=== PATIENT | male | born 1975 | race African-American/Black ===

== ENCOUNTER 2017-10-12 19:56 | Emergency (ER) | payer SELFPAY ==
--- NOTE | 2017-10-12 19:59 | PDOC ---
Rapid Medical Evaluation Time Seen by Provider: 10/12/17 19:57 Medical Evaluation: 10/12/17 19:57 I have performed a brief in-person evaluation of this patient. The patient presents with a chief complaint of: fell down stairs yesterday "think i tore something in my leg" , pain with weight bearing Pertinent physical exam findings: full ROM to L knee, ambulatory I have ordered the following: x-ray The patient will proceed to the ED for further evaluation. Discharge Disposition - Diagnosis Leg pain - Referrals - Patient Instructions - Post Discharge Activity
[2017-10-12 20:01] VITALS: BP 132/75; PULSE 112; TEMP 98.3; BMI 28.5
--- NOTE | 2017-10-12 20:59 | PDOC ---
History of Present Illness - General Chief Complaint: Injury Stated Complaint: FALL LEFT LEG PAIN Time Seen by Provider: 10/12/17 19:57 Past History - Past Medical History Allergies/Adverse Reactions: Allergies Allergy/AdvReac Type Severity Reaction Status Date / Time No Known Allergies Allergy Verified 10/12/17 19:57 Home Medications: Ambulatory Orders NK [No Known Home Medication] 10/12/17 COPD: No - Suicide/Smoking/Psychosocial Hx Smoking History: Current every day smoker Have you smoked in the past 12 months: Yes Number of Cigarettes Smoked Daily: 20 Information on smoking cessation initiated: Yes 'Breaking Loose' booklet given: 10/12/17 Hx Alcohol Use: No Drug/Substance Use Hx: No Substance Use Type: None *Physical Exam - Vital Signs Last Vital Signs Temp Pulse Resp BP Pulse Ox 98.3 F 112 H 18 132/75 100 10/12/17 19:58 10/12/17 19:58 10/12/17 19:58 10/12/17 19:58 10/12/17 19:58 *DC/Admit/Observation/Transfer Diagnosis at time of Disposition: Left knee sprain Qualifiers: Encounter type: initial encounter Involved ligament of knee: unspecified ligament Qualified Code(s): S83.92XA - Sprain of unspecified site of left knee, initial encounter - Discharge Dispostion Disposition: HOME Condition at time of disposition: Stable Admit: No - Referrals Referrals: Tank Lyon MD [Staff Physician] - - Patient Instructions Printed Discharge Instructions: DI for Knee Sprain Additional Instructions: You sprained your knee. Your x-ray was negative for broken bones. Please keep your knee elevated while at rest above the level of your heart to reduce swelling. You may take Motrin 800 mg every 8 hours to help reduce pain and swelling. Please ice the area for 20 minute intervals at least 5 times a day to help reduce swelling. Please wear the Atul wrap and use the crutches. Do not bear weight. Please follow-up with orthopedics on Sunday. A referral has been provided. Return to the emergency department if you have worsening pain, or unable to walk , numbness and tingling of the foot, or had any changes in her symptoms. - Post Discharge Activity Forms/Work/School Notes: Back to Work
== END 2017-10-12 21:42 | disposition home or self-care (01) ==
LOC: JERFT 19:56
DX: S83.8X2A Sprain of other specified parts of left knee, initial encounter (principal); W10.8XXA Fall (on) (from) other stairs and steps, initial encounter; Y93.89 Activity, other specified; Y92.89 Other specified places as the place of occurrence of the external cause; Y99.8 Other external cause status; F17.210 Nicotine dependence, cigarettes, uncomplicated
CPT/HCPCS: 73562-TC-LT-FY; 99281-25